=== PATIENT | female | born 1990 | race American Indian/Alaskan Native ===

== ENCOUNTER 2021-10-12 23:55 | Emergency (ER) | payer SELFPAY ==
[2021-10-13] MEDS ORDERED: propofoL 200 MG/20 ML VIAL IV ONE (00:20)
--- NOTE | 2021-10-13 00:20 | Emergency Department Report ---
Upper Extremity - HPI Stated Complaint: RIGHT SHOULDER DISLOCATED Time Seen by Provider: 10/13/21 00:15 Upper Extremity: Right Shoulder Occurred When: Today Mechanism: Fall Severity: severe Symptoms: Yes Pain with Movement, Yes Deformity, Yes Limited Range of Movement, No Numbness, No Weakness, No Swelling, No Bruising/Ecchymosis, No Laceration or Abrasion Other History: 31-year-old female presenting with complaint of shoulder dislocation after fall while skating. States she tried to break her fall using her right arm. ED Review of Systems ROS: Stated complaint: RIGHT SHOULDER DISLOCATED Other details as noted in HPI Comment: All other systems reviewed and negative Constitutional: denies: chills, fever Respiratory: denies: cough, shortness of breath, wheezing Cardiovascular: denies: chest pain, palpitations Endocrine: no symptoms reported Gastrointestinal: denies: abdominal pain, nausea, diarrhea Musculoskeletal: denies: back pain, joint swelling, arthralgia Skin: denies: rash, lesions Neurological: denies: headache, weakness, paresthesias Psychiatric: denies: anxiety, depression ED Past Medical Hx - Past Medical History Previous Medical History?: No - Surgical History Past Surgical History?: No - Social History Smoking Status: Never Smoker Substance Use Type: None Upper Extremity Exam - Exam General: Vital signs noted. No distress. Alert and acting appropriately. Head and Torso: No HEENT Abnormality, No Neck Tenderness, No Chest/Lungs Abnormality, No Abdominal Tenderness, No Back Tenderness Shoulder Exam: Yes Shoulder Deformity (Deformity to contour of right shoulder), No Normal Range of Motion in Shoulder Arm Exam: No Arm/Humerus Tenderness, No Arm Deformity Elbow: Yes Normal Range of Motion in Elbow, No Elbow Tenderness, No Elbow Deformity CMS Exam: Yes Normal Distal Pulses, Yes Normal Capillary Refill, Yes Normal Distal Sensation, No Broken Skin ED Course Vital Signs 10/12/21 23:59 Temperature 98.3 F Pulse Rate 107 H Respiratory 18 Rate Blood Pressure 130/87 O2 Sat by Pulse 100 Oximetry - Moderate Sedation Indications: fracture/dislocation redu ASA Class: I Mallampati Airway Score: 1 Preparation: monitoring and evaluation advisor applied, pulse oximeter, supplemental O2 applied, reversal agents at bedside, suction/airway equipment at bedside, IV secured IV Propofol Dose (mgs): 40 Complications: none Patient Tolerated Procedure: well, no complications - Orthopedic Joint Reduction Joint #1 Consent Obtained: verbal consent Time Out Performed: Yes Side: right Joint Reduction Location: shoulder Analgesia: moderate sedation Shoulder Technique Used (if applicable): traction/counter-traction Technique Used: traction/counter-traction Post-Reduction Neuro Exam: intact Post-Reduction Vascular Exam: intact Post Reduction X-Ray Obtained: Yes Post Reduction X-Ray Results: reduced Splint Applied: No Patient Tolerated Procedure: well ED Medical Decision Making - Medical Decision Making X-ray reveals acute anterior dislocation of the right shoulder. The shoulder was reduced under procedural sedation. Reduction confirmed by x-ray. Patient placed in sling for comfort. Critical care attestation.: If time is entered above; I have spent that time in minutes in the direct care of this critically ill patient, excluding procedure time. ED Disposition Clinical Impression: Anterior dislocation of right shoulder Disposition: 01 HOME / SELF CARE / HOMELESS Is pt being admited?: No Does the pt Need Aspirin: No Condition: Stable Instructions: Shoulder Dislocation Time of Disposition: 01:41
[2021-10-13] MEDS ORDERED: MORPHINE 4 MG/1 ML INJ IV ONE (00:26)
[2021-10-13] MEDS ORDERED: MORPHINE 4 MG/1 ML INJ ONE (00:27)
--- NOTE | 2021-10-13 01:01 | XRay Report ---
RIGHT SHOULDER 2 VIEW(S) INDICATION / CLINICAL INFORMATION: right shoulder injury COMPARISON: None available. FINDINGS: BONES / JOINT(S): Anterior right shoulder dislocation. No significant arthritis. SOFT TISSUES: No significant abnormality. ADDITIONAL FINDINGS: None. Signer Name: Dominic Yates DO Signed: 10/13/2021 12:57 AM Workstation Name: [id number]
[2021-10-13 01:57] VITALS: BP 128/102
--- NOTE | 2021-10-13 02:03 | XRay Report ---
RIGHT SHOULDER 1 VIEW(S) INDICATION / CLINICAL INFORMATION: Post reduction COMPARISON: None available. FINDINGS: BONES / JOINT(S): Post reduction radiographs demonstrates appropriate reduction of the glenohumeral j oint. No significant arthritis. Possible intra-articular body in the axillary pouch measuring approxi mately 0.9 cm. SOFT TISSUES: No significant abnormality. ADDITIONAL FINDINGS: None. Signer Name: Dominic Yates DO Signed: 10/13/2021 1:58 AM Workstation Name: [id number]
== END 2021-10-13 02:36 | disposition home or self-care (01) ==
LOC: ED 23:55
DX: S43.004A Unspecified dislocation of right shoulder joint, initial encounter (principal); X58.XXXA Exposure to other specified factors, initial encounter; Y93.89 Activity, other specified; Y92.89 Other specified places as the place of occurrence of the external cause; Y99.8 Other external cause status
CPT/HCPCS: 23650; 73020; 73030; 96374; 99283; J2270; J2704; 96375